=== PATIENT | male | born 1940 | race Asian ===

== ENCOUNTER 2017-04-16 18:03 | Inpatient (IN) | payer MEDICARE, OTHER ==
[~2017-04-16] VITALS: Ht 182.9 cm; Wt 53.5 kg
[2017-04-16 19:50] LABS: Basophils # (auto) 0 uL; Basophils % (auto) 0.3 % (0.0-2.0); CONDITION Y; Eosinophils # (auto) 0.4 uL; Eosinophils % (auto) 7.2 % (0.0-7.0); Hematocrit 34.5 % (41.0-53.0); Hemoglobin 11.5 g/dL (13.5-17.5); Lymphocytes # (auto) 0.7 uL; Lymphocytes % (auto) 12.5 % (10.0-50.0); Mean Corpuscular Hemoglobin 30.8 pg (28.0-32.0); Mean Corpuscular Hgb Conc. 33.5 g/dL (32.0-36.0); Mean Corpuscular Volume 92.1 fL (80.0-100.0); Mean Platelet Volume 7.1 fL (7.4-10.4); Monocytes # (auto) 0.5 uL; Monocytes % (auto) 9.2 % (0.0-12.0); Neutrophils # (auto) 3.8 uL; Neutrophils % (auto) 70.8 % (37.0-80.0); Platelet Count (auto) 304 10^3/uL (140-450); Red Cell Distribution Width 14.4 % (11.6-16.0); White Blood Cell 5.3 10^3/uL (4.4-10.8)
[2017-04-16 20:38] LABS: Albumin 3.6 g/dL (3.4-5.0); Anion Gap 10 (5-15); Aspartate Aminotransferase 20 U/L (15-37); BUN/Creatinine Ratio 10.5; Blood Urea Nitrogen 60 mg/dL (7-18); Calcium 8.3 mg/dL (8.5-10.1); Carbon Dioxide 17 mmol/L (21-32); Chloride 112 mmol/L (98-107); GFR African American 12 mL/min; GFR Non-African American 10 mL/min; Glucose 99 mg/dL (74-106); Potassium 5.4 mmol/L (3.5-5.1); Sodium 139 mmol/L (136-145)
[2017-04-16 20:42] LABS: Alkaline Phosphatase 120 U/L (45-117); Bilirubin, Total 0.3 mg/dL (0.2-1.0); Total Protein 7.9 g/dL (6.4-8.2)
[2017-04-17] MEDS ORDERED: SODIUM POLYSTYRENE SULF 15GM/60ML SUSP PR ONE (05:15)
[2017-04-17] MEDS ORDERED: NITROGLYCERIN 0.4 MG SL TAB SL PRN (06:45)
[2017-04-17] MEDS ORDERED: ONDANSETRON HCL 4 MG/2 ML VIAL IV PRN (06:45)
[2017-04-17] MEDS ORDERED: TEMAZEPAM 15 MG CAP PO PRN (06:45)
[2017-04-17] MEDS ORDERED: MORPHINE SULF INJ 2 MG/ML SYRINGE 1ML IV PRN (06:45)
[2017-04-17] MEDS ORDERED: ACETAMINOPHEN 325 MG TAB PO PRN (06:45)
[2017-04-17] MEDS ORDERED: HYDROcodone-ACET 5/325MG TAB PO PRN (06:45)
[2017-04-17] MEDS: FERROUS SULFATE 325 MG TAB PO SCH ×2 (08:00→18:46)
[2017-04-17 09:10] VITALS: BP 120/79
[2017-04-17] MEDS ORDERED: LOSARTAN POTASSIUM 50 MG TAB PO SCH (10:00)
[2017-04-17] MEDS ORDERED: SODIUM CHLORIDE 0.9% 1,000 ML IV ONE (10:30)
[2017-04-17] MEDS: amLODIPine BESYLATE 5 MG TAB PO SCH (12:01)
[2017-04-17] MEDS: CLOPIDOGREL BISULFATE 75 MG TAB PO SCH (12:01)
[2017-04-17] MEDS: PANTOPRAZOLE 40 MG TAB PO SCH (12:01)
[2017-04-17] MEDS: ENOXAPARIN SOD 30 MG/0.3 ML SYRINGE SC SCH (12:02)
[2017-04-17 12:58] VITALS: BP 126/73
[2017-04-17] MEDS ORDERED: AML5T PO (16:30)
[2017-04-17] MEDS ORDERED: FER325T PO (16:30)
[2017-04-17] MEDS ORDERED: ROSU1TAB5 PO (16:30)
[2017-04-17] MEDS ORDERED: AMIO200T33 PO (16:30)
[2017-04-17] MEDS ORDERED: LOSA50TA6 PO (16:30)
[2017-04-17] MEDS ORDERED: CLOP75TA41 PO (16:30)
[2017-04-17 16:55] VITALS: BP 109/72
[2017-04-17 19:30] LABS: Urine Bilirubin Negative (Negative); Urine Blood TRACE /uL (Negative); Urine Color Yellow (Yellow); Urine Glucose Normal (Normal); Urine Ketone Negative (Negative); Urine Nitrite Negative (Negative); Urine RBC 1 /hpf (0 - 3); Urine Urobilinogen Normal (Negative)
[2017-04-17] MEDS: ROSUVASTATIN 10 MG PO SCH (21:23)
[2017-04-17 22:00] VITALS: BP 114/64
[2017-04-17] MEDS ORDERED: ROSUVASTATIN 10 MG PO SCH (22:00)
[2017-04-18 05:00] VITALS: BP 124/75
[2017-04-18 06:34] LABS: Basophils # (auto) 0 uL; Basophils % (auto) 0.5 % (0.0-2.0); CONDITION Y; Eosinophils # (auto) 0.4 uL; Eosinophils % (auto) 6.7 % (0.0-7.0); Hematocrit 34.5 % (41.0-53.0); Hemoglobin 11.4 g/dL (13.5-17.5); Lymphocytes # (auto) 0.6 uL; Lymphocytes % (auto) 9.8 % (10.0-50.0); Mean Corpuscular Hgb Conc. 33.2 g/dL (32.0-36.0); Mean Corpuscular Volume 93.4 fL (80.0-100.0); Mean Platelet Volume 7.1 fL (7.4-10.4); Monocytes # (auto) 0.5 uL; Monocytes % (auto) 8.2 % (0.0-12.0); Neutrophils # (auto) 4.5 uL; Neutrophils % (auto) 74.8 % (37.0-80.0); Platelet Count (auto) 281 10^3/uL (140-450); Red Cell Distribution Width 14.7 % (11.6-16.0)
[2017-04-18 07:14] LABS: Albumin 3.6 g/dL (3.4-5.0); Alkaline Phosphatase 123 U/L (45-117); Anion Gap 9 (5-15); Aspartate Aminotransferase 22 U/L (15-37); BUN/Creatinine Ratio 11.3; Bilirubin, Direct < 0.1 mg/dL (0-0.2); Bilirubin, Total 0.3 mg/dL (0.2-1.0); Blood Urea Nitrogen 61 mg/dL (7-18); Calcium 8.4 mg/dL (8.5-10.1); Carbon Dioxide 18 mmol/L (21-32); Chloride 117 mmol/L (98-107); GFR African American 13 mL/min; GFR Non-African American 11 mL/min; Glucose 82 mg/dL (74-106); Phosphorus 3.3 mg/dL (2.5-4.90); Potassium 4.9 mmol/L (3.5-5.1); Sodium 144 mmol/L (136-145); Total Protein 7.9 g/dL (6.4-8.2); Uric Acid 5.6 mg/dL (3.5-7.2)
[2017-04-18 08:00] VITALS: BP 128/77
[2017-04-18 09:00] VITALS: BP 128/75
[2017-04-18] MEDS: FERROUS SULFATE 325 MG TAB PO SCH ×2 (09:23→17:44)
[2017-04-18] MEDS: PANTOPRAZOLE 40 MG TAB PO SCH (09:23)
[2017-04-18] MEDS: amLODIPine BESYLATE 5 MG TAB PO SCH (09:24)
[2017-04-18] MEDS: CLOPIDOGREL BISULFATE 75 MG TAB PO SCH (09:24)
[2017-04-18] MEDS: ENOXAPARIN SOD 30 MG/0.3 ML SYRINGE SC SCH (09:24)
[2017-04-18 13:00] VITALS: BP 121/62
[2017-04-18 17:00] VITALS: BP 119/62
[2017-04-18] MEDS: ROSUVASTATIN 10 MG PO SCH (21:50)
[2017-04-18 22:00] VITALS: BP_SYST 124; BP_SYST 139; BP_DIAS 70; BP_DIAS 88
[2017-04-19 05:00] VITALS: BP 137/86
[2017-04-19 05:47] LABS: Basophils # (auto) 0 uL; Basophils % (auto) 0.5 % (0.0-2.0); CONDITION Y; Eosinophils # (auto) 0.4 uL; Eosinophils % (auto) 6.9 % (0.0-7.0); Hematocrit 32.5 % (41.0-53.0); Hemoglobin 10.9 g/dL (13.5-17.5); Lymphocytes # (auto) 0.7 uL; Lymphocytes % (auto) 11.2 % (10.0-50.0); Mean Corpuscular Hemoglobin 31.2 pg (28.0-32.0); Mean Corpuscular Hgb Conc. 33.5 g/dL (32.0-36.0); Mean Corpuscular Volume 93.1 fL (80.0-100.0); Mean Platelet Volume 7.1 fL (7.4-10.4); Monocytes # (auto) 0.5 uL; Monocytes % (auto) 7.7 % (0.0-12.0); Neutrophils # (auto) 4.6 uL; Neutrophils % (auto) 73.7 % (37.0-80.0); Platelet Count (auto) 274 10^3/uL (140-450); Red Cell Distribution Width 14.3 % (11.6-16.0); White Blood Cell 6.3 10^3/uL (4.4-10.8)
[2017-04-19 06:01] LABS: Calcium 8.2 mg/dL (8.5-10.1); Potassium 4.8 mmol/L (3.5-5.1)
[2017-04-19 06:21] LABS: BUN/Creatinine Ratio 11.2
[2017-04-19] MEDS ORDERED: SOD CHL 0.45% 1,000 ML IV SCH (07:30)
[2017-04-19] MEDS: ENOXAPARIN SOD 30 MG/0.3 ML SYRINGE SC SCH (09:33)
[2017-04-19] MEDS: amLODIPine BESYLATE 5 MG TAB PO SCH (09:33)
[2017-04-19] MEDS: CLOPIDOGREL BISULFATE 75 MG TAB PO SCH (09:33)
[2017-04-19] MEDS: PANTOPRAZOLE 40 MG TAB PO SCH (09:33)
[2017-04-19] MEDS: FERROUS SULFATE 325 MG TAB PO SCH (09:34)
[2017-04-19 10:26] VITALS: BP 127/74
[2017-04-19 12:00] VITALS: BP 129/76
[2017-04-19 14:19] VITALS: BP 127/74
== END 2017-04-19 15:56 | disposition home or self-care (01) | DRG 682 ==
LOC: ER 18:11 → TELE 18:12 → TELE-E-ADS 04-17 08:18 → TELE-WESTW 04-17 11:16
PROVIDERS: ADMIT Nurse Practitioner; ATTEND Family Medicine
DX: N17.0 Acute kidney failure with tubular necrosis (principal); E43 Unspecified severe protein-calorie malnutrition; I12.0 Hypertensive chronic kidney disease with stage 5 chronic kidney disease or end stage renal disease; Z68.1 Body mass index [BMI] 19.9 or less, adult; N18.6 End stage renal disease; E87.5 Hyperkalemia; D63.8 Anemia in other chronic diseases classified elsewhere; I25.10 Atherosclerotic heart disease of native coronary artery without angina pectoris; D63.1 Anemia in chronic kidney disease; E11.22 Type 2 diabetes mellitus with diabetic chronic kidney disease; E78.5 Hyperlipidemia, unspecified; I95.9 Hypotension, unspecified; I44.1 Atrioventricular block, second degree; Z95.1 Presence of aortocoronary bypass graft; Z95.5 Presence of coronary angioplasty implant and graft; Z99.2 Dependence on renal dialysis
CPT/HCPCS: 36415; 71010; 76775; 80048; 80053; 80076; 81001; 82306; 82570; 82962; 83036; 83540; 83550; 83735; 84100; 84132; 84156; 84300; 84443; 84484; 84550; 85025; 87340; 93005

== ENCOUNTER → 2017-05-08 | Outpatient (CLI) | payer MEDICARE ==
[~2017-05-08] MED LIST: AMIO200T33 PO; AML5T PO; CLOP75TA41 PO; FER325T PO; LOSA50TA6 PO; ROSU1TAB5 PO
[2017-05-08 10:58] LABS: Basophils # (auto) 0 uL; Basophils % (auto) 0.3 % (0.0-2.0); CONDITION Y; Eosinophils # (auto) 0.5 uL; Eosinophils % (auto) 8.8 % (0.0-7.0); Hematocrit 35.3 % (41.0-53.0); Hemoglobin 11.8 g/dL (13.5-17.5); Lymphocytes # (auto) 0.7 uL; Lymphocytes % (auto) 12.7 % (10.0-50.0); Mean Corpuscular Hemoglobin 31.2 pg (28.0-32.0); Mean Corpuscular Hgb Conc. 33.4 g/dL (32.0-36.0); Mean Corpuscular Volume 93.3 fL (80.0-100.0); Mean Platelet Volume 7.5 fL (7.4-10.4); Monocytes # (auto) 0.4 uL; Monocytes % (auto) 7.4 % (0.0-12.0); Neutrophils # (auto) 4.1 uL; Neutrophils % (auto) 70.8 % (37.0-80.0); Platelet Count (auto) 254 10^3/uL (140-450); Red Cell Distribution Width 14.8 % (11.6-16.0); White Blood Cell 5.8 10^3/uL (4.4-10.8)
[2017-05-08 11:19] LABS: Urine Bilirubin Negative (Negative); Urine Blood Negative /uL (Negative); Urine Color Yellow (Yellow); Urine Glucose Normal (Normal); Urine Ketone Negative (Negative); Urine Nitrite Negative (Negative); Urine RBC 1 /hpf (0 - 3); Urine Squamous Epithelial Cell FEW /hpf (<5); Urine Urobilinogen Normal (Negative); Urine pH 5.5 (5.0-8.0)
[2017-05-08 11:24] LABS: Urine Protein/Creatinine Ratio 1.96
[2017-05-08 11:25] LABS: Albumin 3.7 g/dL (3.4-5.0); BUN/Creatinine Ratio 10.6; Calcium 8.5 mg/dL (8.5-10.1); Phosphorus 3.9 mg/dL (2.5-4.90); Potassium 5.1 mmol/L (3.5-5.1); Uric Acid 6.1 mg/dL (3.5-7.2)
== END | disposition home or self-care (01) ==
LOC: LAB 10:26
PROVIDERS: ATTEND Internal Medicine Nephrology
DX: N18.3 Chronic kidney disease, stage 3 (moderate) (principal); D63.1 Anemia in chronic kidney disease; R80.9 Proteinuria, unspecified; E78.5 Hyperlipidemia, unspecified; E21.3 Hyperparathyroidism, unspecified; M10.9 Gout, unspecified; N39.0 Urinary tract infection, site not specified; E55.9 Vitamin D deficiency, unspecified
CPT/HCPCS: 36415; 80061; 80069; 81001; 82306; 82570; 83540; 83550; 84156; 84550; 85025

== ENCOUNTER → 2017-06-04 | Outpatient (CLI) | payer MEDICARE, MEDICAID ==
[2017-06-04 10:18] LABS: Basophils # (auto) 0 uL; Basophils % (auto) 0.9 % (0.0-2.0); Eosinophils # (auto) 0.6 uL; Eosinophils % (auto) 11.3 % (0.0-7.0); Hematocrit 30.7 % (41.0-53.0); Hemoglobin 10.2 g/dL (13.5-17.5); Lymphocytes # (auto) 0.7 uL; Lymphocytes % (auto) 13.4 % (10.0-50.0); Mean Corpuscular Hemoglobin 31.9 pg (28.0-32.0); Mean Corpuscular Hgb Conc. 33.3 g/dL (32.0-36.0); Mean Corpuscular Volume 95.7 fL (80.0-100.0); Mean Platelet Volume 7.1 fL (6.9-10.8); Monocytes # (auto) 0.6 uL; Monocytes % (auto) 11.6 % (0.0-12.0); Neutrophils # (auto) 3.1 uL; Neutrophils % (auto) 62.8 % (37.0-80.0); Nucleated Red Blood Cells % 0.1 %; Platelet Count (auto) 188 10^3/uL (140-450); Red Cell Distribution Width 14.7 % (11.8-14.3); White Blood Cell 4.9 10^3/uL (4.4-10.8)
[2017-06-04 10:47] LABS: Albumin 3.7 g/dL (3.4-5.0); BUN/Creatinine Ratio 7.6; Calcium 8.3 mg/dL (8.5-10.1); Phosphorus 2.4 mg/dL (2.5-4.90); Uric Acid 10.1 mg/dL (3.5-7.2)
[2017-06-04 10:57] LABS: Urine Bilirubin Negative (Negative); Urine Blood Negative /uL (Negative); Urine Color Yellow (Yellow); Urine Glucose Normal (Normal); Urine Ketone Negative (Negative); Urine Nitrite Negative (Negative); Urine RBC 3 /hpf (0 - 3); Urine Urobilinogen Normal (Negative); Urine pH 7.5 (5.0-8.0)
== END | disposition home or self-care (01) ==
LOC: LAB 09:51
PROVIDERS: ATTEND Internal Medicine Nephrology
DX: E55.9 Vitamin D deficiency, unspecified (principal); E78.5 Hyperlipidemia, unspecified; E21.3 Hyperparathyroidism, unspecified; M10.9 Gout, unspecified; R80.9 Proteinuria, unspecified; I12.9 Hypertensive chronic kidney disease with stage 1 through stage 4 chronic kidney disease, or unspecified chronic kidney disease; N18.4 Chronic kidney disease, stage 4 (severe); D63.1 Anemia in chronic kidney disease
CPT/HCPCS: 36415; 80069; 81001; 82306; 84550; 85025

== ENCOUNTER → 2017-08-14 | Outpatient (CLI) | payer MEDICARE, MEDICAID ==
[2017-08-14 11:21] LABS: Albumin 3.8 g/dL (3.4-5.0); BUN/Creatinine Ratio 8.8; Calcium 8.7 mg/dL (8.5-10.1); Phosphorus 2.5 mg/dL (2.5-4.90); Potassium 4.1 mmol/L (3.5-5.1)
== END | disposition home or self-care (01) ==
LOC: LAB 09:57
PROVIDERS: ATTEND Internal Medicine Nephrology
DX: N18.3 Chronic kidney disease, stage 3 (moderate) (principal); E78.00 Pure hypercholesterolemia, unspecified
CPT/HCPCS: 36415; 80061; 80069

== ENCOUNTER → 2017-09-23 | Outpatient (CLI) | payer MEDICARE, MEDICAID ==
[2017-09-23 12:02] LABS: Basophils # (auto) 0 uL; Basophils % (auto) 0.9 % (0.0-2.0); Eosinophils # (auto) 0.6 uL; Eosinophils % (auto) 14.3 % (0.0-7.0); Hematocrit 29.8 % (41.0-53.0); Lymphocytes # (auto) 0.5 uL; Lymphocytes % (auto) 12.1 % (10.0-50.0); Mean Corpuscular Hemoglobin 31.6 pg (28.0-32.0); Mean Corpuscular Hgb Conc. 33.6 g/dL (32.0-36.0); Mean Corpuscular Volume 94.1 fL (80.0-100.0); Monocytes # (auto) 0.3 uL; Monocytes % (auto) 7.4 % (0.0-12.0); Neutrophils # (auto) 2.9 uL; Neutrophils % (auto) 65.3 % (37.0-80.0); Platelet Count (auto) 254 10^3/uL (140-450); Red Blood Cells 3.17 10^6/uL (4.5-5.90); Red Cell Distribution Width 13.2 % (11.8-14.3); White Blood Cell 4.4 10^3/uL (4.4-10.8)
[2017-09-23 12:16] LABS: Urine Bacteria NONE SEEN /hpf (None Seen); Urine Blood TRACE /uL (Negative); Urine Mucus FEW (None Seen); Urine Specific Gravity 1.006 (1.001-1.035); Urine WBC <1 /hpf (0 - 3)
[2017-09-23 13:03] LABS: Albumin 3.4 g/dL (3.4-5.0); BUN/Creatinine Ratio 7.5; Phosphorus 2.4 mg/dL (2.5-4.90); Potassium 4.1 mmol/L (3.5-5.1); Uric Acid 3.5 mg/dL (3.5-7.2)
== END | disposition home or self-care (01) ==
LOC: LAB 11:32
PROVIDERS: ATTEND Internal Medicine
DX: I12.0 Hypertensive chronic kidney disease with stage 5 chronic kidney disease or end stage renal disease (principal); N18.5 Chronic kidney disease, stage 5; D63.1 Anemia in chronic kidney disease; E21.3 Hyperparathyroidism, unspecified; E55.9 Vitamin D deficiency, unspecified; E78.5 Hyperlipidemia, unspecified; M10.9 Gout, unspecified; R80.9 Proteinuria, unspecified
CPT/HCPCS: 36415; 80069; 81001; 82306; 82570; 84156; 84550; 85025

== ENCOUNTER 2018-03-08 23:25 | Emergency (ER) | payer MEDICARE, MEDICAID ==
[~2018-03-08] VITALS: Ht 175.3 cm; Wt 62.6 kg
[2018-03-09 02:44] LABS: Basophils # (auto) 0 uL; Basophils % (auto) 0.6 % (0.0-2.0); Eosinophils # (auto) 0.1 uL; Eosinophils % (auto) 2.6 % (0.0-7.0); Hematocrit 36.2 % (41.0-53.0); Hemoglobin 11.6 g/dL (13.5-17.5); Lymphocytes # (auto) 0.4 uL; Lymphocytes % (auto) 7.7 % (10.0-50.0); Mean Corpuscular Hemoglobin 30.9 pg (28.0-32.0); Mean Corpuscular Hgb Conc. 32.1 g/dL (32.0-36.0); Mean Corpuscular Volume 96.2 fL (80.0-100.0); Monocytes # (auto) 0.4 uL; Monocytes % (auto) 8.2 % (0.0-12.0); Neutrophils # (auto) 3.9 uL; Neutrophils % (auto) 80.9 % (37.0-80.0); Nucleated Red Blood Cells % 0.1 %; Platelet Count (auto) 169 10^3/uL (140-450); Red Blood Cells 3.76 10^6/uL (4.5-5.90); Red Cell Distribution Width 16.4 % (11.8-14.3); White Blood Cell 4.8 10^3/uL (4.4-10.8)
[2018-03-09 03:10] LABS: Albumin 3.5 g/dL (3.4-5.0); BUN/Creatinine Ratio 7.7; Bilirubin, Total 0.5 mg/dL (0.2-1.0); Calcium 8.4 mg/dL (8.5-10.1); Potassium 5.3 mmol/L (3.5-5.1); Total Protein 7.7 g/dL (6.4-8.2)
[2018-03-09] MEDS ORDERED: LEVOFLOXACIN 500MG 100 ML IV ONE (06:15)
[2018-03-09 07:48] VITALS: BP 161/89
== END 2018-03-09 08:02 | disposition short-term general hospital (02) ==
LOC: ER 23:25
DX: J18.9 Pneumonia, unspecified organism (principal); I71.4 Abdominal aortic aneurysm, without rupture; J90 Pleural effusion, not elsewhere classified; I12.9 Hypertensive chronic kidney disease with stage 1 through stage 4 chronic kidney disease, or unspecified chronic kidney disease; N18.3 Chronic kidney disease, stage 3 (moderate); E78.5 Hyperlipidemia, unspecified; Z95.1 Presence of aortocoronary bypass graft; Z79.899 Other long term (current) drug therapy; Z86.73 Personal history of transient ischemic attack (TIA), and cerebral infarction without residual deficits
CPT/HCPCS: 36415; 71045; 74176; 80053; 83690; 84484; 85025; 93005; 96365; 99285; J1956

== ENCOUNTER → 2018-05-02 | Outpatient (CLI) | payer MEDICARE, MEDICAID ==
[~2018-05-02] VITALS: Ht 177.8 cm; Wt 50.8 kg
[~2018-05-02] MED LIST changes: +ADENOSINE 43 MG in GIVE UN-DILUTED 0 ML IV STA; -ROSU1TAB5 PO; +ROSU1TAB9 PO
[2018-05-02 10:22] VITALS: BP 147/75
== END | disposition home or self-care (01) ==
LOC: XY 08:16
DX: R94.31 Abnormal electrocardiogram [ECG] [EKG] (principal); E78.5 Hyperlipidemia, unspecified; I12.9 Hypertensive chronic kidney disease with stage 1 through stage 4 chronic kidney disease, or unspecified chronic kidney disease; N18.3 Chronic kidney disease, stage 3 (moderate)
CPT/HCPCS: 78452; 93017; A9500; J0153

== ENCOUNTER → 2018-05-07 | Outpatient (CLI) | payer MEDICARE, MEDICAID ==
[~2018-05-07] MED LIST changes: -ADENOSINE 43 MG in GIVE UN-DILUTED 0 ML IV STA
== END | disposition home or self-care (01) ==
LOC: LAB 10:27
PROVIDERS: ATTEND Urology
DX: R97.20 Elevated prostate specific antigen [PSA] (principal)
CPT/HCPCS: 36415; 82565; 84153; 84154; 84520

== ENCOUNTER → 2018-07-14 | Outpatient (CLI) | payer MEDICARE, MEDICAID ==
[~2018-07-14] MED LIST changes: +LOSA-46 PO; -LOSA50TA6 PO
[2018-07-14 13:17] LABS: Potassium 5.3 mmol/L (3.5-5.1)
[2018-07-14 13:19] LABS: BUN/Creatinine Ratio 7.7
== END | disposition home or self-care (01) ==
LOC: LAB 11:24
PROVIDERS: ATTEND Internal Medicine Nephrology
DX: I12.9 Hypertensive chronic kidney disease with stage 1 through stage 4 chronic kidney disease, or unspecified chronic kidney disease (principal); N18.3 Chronic kidney disease, stage 3 (moderate); E78.5 Hyperlipidemia, unspecified
CPT/HCPCS: 36415; 80048

== ENCOUNTER → 2018-07-17 | Outpatient (CLI) | payer MEDICARE, MEDICAID ==
[2018-07-17 13:03] LABS: BUN/Creatinine Ratio 8.3; Calcium 8.8 mg/dL (8.5-10.1); Potassium 5.3 mmol/L (3.5-5.1)
== END | disposition home or self-care (01) ==
LOC: LAB 12:14
PROVIDERS: ATTEND Internal Medicine Nephrology
DX: I12.9 Hypertensive chronic kidney disease with stage 1 through stage 4 chronic kidney disease, or unspecified chronic kidney disease (principal); N18.3 Chronic kidney disease, stage 3 (moderate)
CPT/HCPCS: 36415; 80048

== ENCOUNTER 2018-11-29 10:10 | Inpatient (IN) | payer MEDICARE, MEDICAID ==
[~2018-11-29] VITALS: Ht 177.8 cm; Wt 46.9 kg
[2018-11-29] MEDS ORDERED: PIPERACILLIN-TAZOB 3.375GM 100 ML IV ONE (12:30)
[2018-11-29 13:38] LABS: Basophils # (auto) 0 uL; Basophils % (auto) 0.7 % (0.0-2.0); Eosinophils # (auto) 0.7 uL; Eosinophils % (auto) 12.5 % (0.0-7.0); Hematocrit 34.1 % (41.0-53.0); Hemoglobin 11.1 g/dL (13.5-17.5); Lymphocytes # (auto) 0.6 uL; Lymphocytes % (auto) 10.9 % (10.0-50.0); Mean Corpuscular Hemoglobin 32.7 pg (28.0-32.0); Mean Corpuscular Hgb Conc. 32.6 g/dL (32.0-36.0); Mean Corpuscular Volume 100.3 fL (80.0-100.0); Monocytes # (auto) 0.5 uL; Monocytes % (auto) 9.6 % (0.0-12.0); Neutrophils # (auto) 3.7 uL; Neutrophils % (auto) 66.3 % (37.0-80.0); Platelet Count (auto) 95 10^3/uL (140-450); White Blood Cell 5.6 10^3/uL (4.4-10.8)
[2018-11-29 13:49] LABS: Potassium 4.8 mmol/L (3.5-5.1)
[2018-11-29 13:59] LABS: Albumin 3.4 g/dL (3.4-5.0); BUN/Creatinine Ratio 5.2; Bilirubin, Total 0.5 mg/dL (0.2-1.0); Magnesium 2.4 mg/dL (1.6-2.6); Total Protein 7.6 g/dL (6.4-8.2)
[2018-11-29 15:41] LABS: Urine WBC None Seen /hpf (0 - 3)
[2018-11-29 15:57] LABS: Urine Bacteria NONE SEEN /hpf (None Seen); Urine Blood Negative /uL (Negative); Urine Specific Gravity 1.008 (1.001-1.035)
[2018-11-29] MEDS ORDERED: NITROGLYCERIN 0.4 MG SL TAB SL PRN (17:30)
[2018-11-29] MEDS ORDERED: MORPHINE SULF INJ 2 MG/ML SYRINGE 1ML IV PRN ×2 (17:30→17:45)
[2018-11-29] MEDS ORDERED: ONDANSETRON HCL 4 MG/2 ML VIAL IV PRN (17:45)
[2018-11-29] MEDS ORDERED: ACETAMINOPHEN 500 MG TAB PO PRN (17:45)
[2018-11-29] MEDS ORDERED: HYDROcodone-ACET 5/325MG TAB PO PRN (17:45)
[2018-11-29] MEDS: CALCIUM ACETATE 667 MG CAP PO SCH (19:00)
[2018-11-29] MEDS: TAMSULOSIN HYDROCHLORIDE 0.4 MG CAP PO SCH (19:00)
[2018-11-29] MEDS ORDERED: ASPI81TA27 PO (19:58)
[2018-11-29] MEDS ORDERED: CALC667C PO (19:58)
[2018-11-29] MEDS ORDERED: FEBU40TA PO (19:58)
[2018-11-29] MEDS ORDERED: TAMS1CAP25 PO (19:59)
--- NOTE | 2018-11-29 20:20 | NUR ---
Telemetry admit from [facility]AL[facility] SCHULZGURVINDER admitted to Telemetry unit after SBAR received. Patient oriented to oZila Juarez, primary RN, unit, room, bed, and unit policies regarding patient care and visiting hours. Patient now on continuous telemetry monitoring, tele box # 43 and telemetry reading on arrival to unit is SR 86 WITH 1ST DEGREE AVB. Patient placed on bedside oxygen, weighed by bedscale and encouraged to call if they need something. All questions and concerns addressed, patient verbalized understanding. Note: ALERT AND ORIENTED X 4. DENIES PAIN AND DISCOMFORT AT THIS TIME.CALL LIGHT WITHIN REACH, BED IN LOW POSITION AND ALARM IS ON.
[2018-11-29 20:30] VITALS: BP 162/87
[2018-11-29] MEDS: APIXABAN 5 MG TAB PO SCH (21:37)
[2018-11-29] MEDS: ATORVASTATIN 20 MG TAB PO SCH (21:38)
[2018-11-30 05:00] VITALS: BP 144/82
[2018-11-30 06:46] LABS: BUN/Creatinine Ratio 5.6; Calcium 8.7 mg/dL (8.5-10.1); Potassium 4.6 mmol/L (3.5-5.1)
[2018-11-30 06:49] LABS: Hematocrit 28.6 % (41.0-53.0); Hemoglobin 9.4 g/dL (13.5-17.5); Mean Corpuscular Hemoglobin 32.9 pg (28.0-32.0); Mean Corpuscular Volume 99.6 fL (80.0-100.0); Platelet Count (auto) 96 10^3/uL (140-450); Red Blood Cells 2.87 10^6/uL (4.5-5.90); Red Cell Distribution Width 15.7 % (11.8-14.3); White Blood Cell 5.8 10^3/uL (4.4-10.8)
[2018-11-30 06:58] LABS: Band Neutrophils % (manual) 0; Basophils % (manual) 0 (0.0-2.0); Blast Cells 0; Metamyelocytes % 0; Myelocytes % 0; Promyelocytes % 0; Reactive Lymphocytes 0
--- NOTE | 2018-11-30 07:15 | NUR ---
Opening Shift Note Assumed care of patient, awake and alert. No S/S of distress/SOB on 2 LPM via nasal cannula or pain. Instructed on POC and to call for assist PRN, will continue to monitor for changes Q1hr and PRN. Bed in low and locked position, rails up x2, no-slip socks on.
[2018-11-30 08:00] VITALS: BP 145/78
[2018-11-30 08:42] LABS: Eosinophils % (manual) 14 (0-7); Lymphocytes % (manual) 11 (10.0-50.0); Monocytes % (manual) 6 (0-12)
[2018-11-30] MEDS: CALCIUM ACETATE 667 MG CAP PO SCH ×3 (08:42→17:59)
--- NOTE | 2018-11-30 09:12 | NUR ---
MRSA NARES SWAB COLLECTED SENT TO LAB
[2018-11-30] MEDS: FERROUS SULFATE 325 MG TAB PO SCH (10:41)
[2018-11-30] MEDS: amLODIPine BESYLATE 5 MG TAB PO SCH (10:42)
[2018-11-30] MEDS: PANTOPRAZOLE 40 MG TAB PO SCH (10:42)
[2018-11-30] MEDS: APIXABAN 5 MG TAB PO SCH (10:42)
--- NOTE | 2018-11-30 12:15 | NUR ---
DR REDDING AT BEDSIDE NEW ORDERS ADDED, CT ANGIO CHEST-DR REDDING SPOKE TO DR VILLANUEVA REGARDING CONTRAST, STOP ELIQUIS, THORACENESIS TOMORROW.
[2018-11-30 12:25] VITALS: BP 132/79
[2018-11-30 13:30] LABS: INR 1.09 (0.9-1.15); Partial Thromboplastin Time 38.8 sec (23.78-33.04); Prothrombin Time 11.6 sec (9.27-12.13)
--- NOTE | 2018-11-30 14:53 | NUR ---
PAGE TO DR VILLANUEVA FOR DIALYSIS ORDERS, PER DR REDDING SHE SPOKE TO DR VILLANUEVA AND OK'ED THE CT ANGIO, PATIENT WILL BE DIALYZED IN 24 HOURS. AWAITING CALL BACK FOR ORDERS.
[2018-11-30] MEDS ORDERED: VANCOMYCIN PER PHARMACY 0 MG IV SCH (15:15)
--- NOTE | 2018-11-30 15:41 | NUR ---
SPUTUM SAMPLE COLLECTED
[2018-11-30] MEDS ORDERED: VANCOMYCIN 500 MG in D5W 5% 100 ML IV ONE (16:00)
--- NOTE | 2018-11-30 16:16 | NUR ---
DR VILLANUEVA AT BEDSIDE
[2018-11-30] MEDS ORDERED: IODIXANOL 320MG/ML 100ML BTL IV ONE (16:50)
[2018-11-30 16:54] VITALS: BP 145/83
--- NOTE | 2018-11-30 17:21 | NUR ---
PATIENT OFF UNIT FOR PROCEDURE CT ANGIO
--- NOTE | 2018-11-30 17:50 | NUR ---
PATIENT BACK ON UNIT
[2018-11-30] MEDS: TAMSULOSIN HYDROCHLORIDE 0.4 MG CAP PO SCH (17:59)
--- NOTE | 2018-11-30 19:10 | NUR ---
SHIFT CHANGE ENDORSED CARE TO NOC NURSE
--- NOTE | 2018-11-30 19:45 | NUR ---
Opening Shift Note Assumed care of patient, awake, alert, oriented x4. No S/S of distress/SOB on 2.5 L via nasal cannula. Patient denies pain and no nose bleeds at this time. Instructed on POC and to call for assist PRN, will continue to monitor. Bed in lowest position, rails up x2, safety socks on, bed alarm armed. Call light and urinal within reach.
--- NOTE | 2018-11-30 20:10 | NUR ---
IV occluded. IV DC'd from right upper arm 22g with clean sterile technique, catheter fully intact. Pressure dressing applied to site. Patient tolerated well.
[2018-11-30] MEDS: ATORVASTATIN 20 MG TAB PO SCH (21:37)
--- NOTE | 2018-11-30 21:37 | NUR ---
SCD PLACEMENT Put SCD on patient and educated on what the equipment is used for.
[2018-11-30 22:00] VITALS: BP 146/85
[2018-12-01] VITALS (18 sets, daily range): BP systolic 58–154; BP diastolic 31–84
--- NOTE | 2018-12-01 00:15 | NUR ---
Change in Rhythm Kristal called at 0010 to notify this nurse that there was a change in rhythm from sinus rhythm to A Fib. Ekg was done to confirm change. Change was noted. EKG was placed in patients chart. Vitals were taken HR 77, 97% oxygen, bp 144/67, 16 respiration. Patient is Asymptomatic with no s/s of distress or sob. Will page hospitalist.
--- NOTE | 2018-12-01 00:30 | NUR ---
Patient refused turning Patient asked to not be turned if sleeping. Patient was educated on the reason why he is needed to be turn. Patient verbalized understanding, but still refused to be turned due to not being able to sleep.
--- NOTE | 2018-12-01 02:36 | NUR ---
Hospitalist Called: Hospitalist was paged at 0200. Hospitalist Butch called back and was informed about rhythm changed. No new orders at this time will continue to monitor patient.
[2018-12-01 07:15] LABS: Basophils # (auto) 0 uL; Basophils % (auto) 0.6 % (0.0-2.0); Eosinophils # (auto) 0.7 uL; Eosinophils % (auto) 10.3 % (0.0-7.0); Hematocrit 30.6 % (41.0-53.0); Hemoglobin 10.1 g/dL (13.5-17.5); Lymphocytes # (auto) 0.7 uL; Mean Corpuscular Hemoglobin 32.9 pg (28.0-32.0); Mean Corpuscular Hgb Conc. 32.9 g/dL (32.0-36.0); Mean Corpuscular Volume 100.1 fL (80.0-100.0); Monocytes # (auto) 0.6 uL; Neutrophils # (auto) 4.7 uL; Neutrophils % (auto) 70.1 % (37.0-80.0); Platelet Count (auto) 132 10^3/uL (140-450); Red Blood Cells 3.06 10^6/uL (4.5-5.90); Red Cell Distribution Width 15.3 % (11.8-14.3); White Blood Cell 6.7 10^3/uL (4.4-10.8)
[2018-12-01 07:39] LABS: Albumin 3.4 g/dL (3.4-5.0); BUN/Creatinine Ratio 5.3; Calcium 8.9 mg/dL (8.5-10.1)
[2018-12-01 07:42] LABS: Bilirubin, Total 0.7 mg/dL (0.2-1.0); Total Protein 7.6 g/dL (6.4-8.2)
--- NOTE | 2018-12-01 07:53 | NUR ---
Closing Shift note: Report given and care endorsed with monika Grimaldo day nurse. Patient is awake, alert, and oriented x 4. On 2.5L via nc with no s/s of distress or sob. Patient denies pain. Bed in lowest position with call light in reach. Bed alarm is on.
--- NOTE | 2018-12-01 07:55 | NUR ---
Opening Shift Note Assumed care of patient, awake and alert and oriented x4. No S/S of distress/SOB or pain. Instructed on POC and to call for assist PRN, will continue to monitor for changes. Patient made aware of 1200 mL fluid restriction/ 24 hrs and stated understanding.
--- NOTE | 2018-12-01 08:03 | NUR ---
Hospitalist paged regarding Special Services Supervisor 10.0, awaiting C/B and patient scheduled or dialysis today. Will continue to monitor.
[2018-12-01] MEDS: CALCIUM ACETATE 667 MG CAP PO SCH ×3 (08:19→18:00)
[2018-12-01] MEDS ORDERED: cefTRIAXone 1GM/50ML D5W 50 ML IV SCH (09:00)
[2018-12-01] MEDS: PANTOPRAZOLE 40 MG TAB PO SCH (09:47)
[2018-12-01] MEDS: FERROUS SULFATE 325 MG TAB PO SCH (09:47)
--- NOTE | 2018-12-01 09:55 | NUR ---
Patient transferred for Thoracentesis no s/s of distress noted.
--- NOTE | 2018-12-01 10:09 | NUR ---
Dr Do at nursing station and made aware of Lap Hand Tool 10.0. Patient scheduled for dialysis today and currently off unit for thoracentesis.
--- NOTE | 2018-12-01 10:30 | NUR ---
THORACENTESIS DONE BY DR GILLETTE IN ULTRASOUND. PT TOLERATED WELL. VSS. 123/[id number]%. 900ML OF FLUID REMOVED AND SENT TO THE LAB.
[2018-12-01] MEDS: amLODIPine BESYLATE 5 MG TAB PO SCH (11:10)
--- NOTE | 2018-12-01 12:46 | NUR ---
Dr Do at bedside. Patient receiving dialysis, no s/s of distress noted or discomfort. Will continue to monitor.
--- NOTE | 2018-12-01 13:47 | NUR ---
Dr Hartman at bedside. Patient currently receiving dialysis no s/s of distress noted, will continue to monitor.
--- NOTE | 2018-12-01 14:10 | NUR ---
Dialysis Dialysis completed, 2.5 L removed. No s/s of distress noted. Will continue to monitor.
[2018-12-01] MEDS: ALBUMIN 25% 100 ML IV SCH ×2 (14:29→15:36)
[2018-12-01] MEDS ORDERED: VANCOMYCIN 1GM/250ML 250 ML IV ONE (16:00)
--- NOTE | 2018-12-01 16:12 | NUR ---
Patient started to cough up blood. Dr Do paged and made aware. VS stable. Patient denies any chest pain or SOB at this time will continue to monitor.
--- NOTE | 2018-12-01 16:18 | NUR ---
Received call back from Dr Do. Dr Do made aware of pt coughing up blood. New orders received for breathing TX, Albuterl and Atrovent, and Stat CXR. Will continue to monitor.
--- NOTE | 2018-12-01 16:50 | NUR ---
Dr Do paged in order to inform of CXR results and to notify MD that patient is still coughing up bright red blood. Will continue to monitor. Charge nurse and daughter at bedside.
--- NOTE | 2018-12-01 16:56 | NUR ---
Received call back from Dr Do and made aware of CXR results of possible hemorrhage and that patient continues to cough up quite a bit amount of bright red blood continuously. New orders received to transfer patient to ICU, Type and Screen, 2 units of FFP, 1 unit of PRBCs. Will continue to monitor, RN at bedside and charge nurse at bedside.
--- NOTE | 2018-12-01 17:05 | NUR ---
Dr Geiger at bedside. Dr Geiger spoke with Dr Do and made aware of patient's change of condition. Dr Geiger speaking with pt's daughter and made aware patient to be intubated. Desktop Administrator also made aware of intubation and at bedside.
[2018-12-01] MEDS ORDERED: ETOMIDATE (2MG/ML) 20ML VIAL IV ONE (17:06)
[2018-12-01] MEDS ORDERED: SUCCINYLCHOLINE CHLORIDE 20 MG/ML 10ML VIAL IV ONE (17:07)
[2018-12-01] MEDS ORDERED: ROCURONIUM 10MG/ML 10ML VIAL IV ONE (17:07)
[2018-12-01] MEDS ORDERED: PROPOFOL 100 ML IV SCH (17:19)
[2018-12-01] MEDS: fentaNYL Drip 2500mCg/250mlNS 250 ML IV SCH ×2 (17:19→19:30)
[2018-12-01] MEDS ORDERED: MIDAZOLAM HCL 5 MG/ML-1ML VIAL ONE (17:23)
--- NOTE | 2018-12-01 17:28 | NUR ---
Respiratory note: PLACED PT ON VENT AT THIS TIME. PT WAS INTUBATED AT 17:[address] LIU WITHOUT INCIDENT. PT INTUBATED WITH 7.5 ETT SECURED AT 20CM VIA HOLISTER, ETT MOVED TO 26CM AT THE LIP POST CXR RE-SECURED TO HOLISTER. BS ARE COURSE T/O, SPUTUM SAMPLE OBTAINED SXD FOR BENJAMIN BLOOD, SPUTUM SAMPLE SENT TO LAB. PT WILL BE TRANSFERRED TO ICU SOON MEANWHILE WILL BE HERE IN ROOM 220A. PTS DAUGHTER AT BEDSIDE. WILL CONTINUE TO MONITOR.
[2018-12-01] MEDS ORDERED: NOREPINEPHRINE 8 MG/250ML KIT 250 ML IV SCH (17:30)
--- NOTE | 2018-12-01 17:37 | NUR ---
INTUBATION cyber security manager Joslyn at bedside and Dr Waldron, RT, Ocean Export Coordinator, and Hospitalist Fely at bedside. cyber security manager Joslyn administered Etomidate and Succinate as ordered per Dr Waldron at 1714. 147/84, 149, 88%. Patient intubated at 1717. Patient was then also placed on a vent (149/72, 116, 100%). ICU Charge Nurse Saul at bedside and assumed care and medicated patient as ordered per Dr gutierrez. Will continue to monitor.
[2018-12-01 17:55] LABS: Hematocrit 27.6 % (41.0-53.0)
[2018-12-01] MEDS ORDERED: ALBUTEROL SULF 2.5 MG/0.5ML(0.5%) NEB SOLN NEB SCH (18:00)
[2018-12-01] MEDS: TAMSULOSIN HYDROCHLORIDE 0.4 MG CAP PO SCH (18:00)
[2018-12-01] MEDS ORDERED: IPRATROPIUM BROM 0.5 MG/2.5ML INH SOL NEB SCH (18:00)
--- NOTE | 2018-12-01 18:10 | NUR ---
Hospitalist Fely and Dr Hartman at bedside speaking with patient's daughter.
--- NOTE | 2018-12-01 18:20 | NUR ---
Respiratory note: PAGED TO BEDSIDE. DEBBIE BAUTISTA INCREASED PEEP TO 7CMH20
--- NOTE | 2018-12-01 18:24 | NUR ---
Report given to Betsy SANFORD made aware of pending 2U FFP to be given, 1U PRBCs, CT Angio, Type and Screen drawn yet results pending. Made aware 200 mL of bright red blood collected in suction canister.
--- NOTE | 2018-12-01 18:25 | NUR ---
Betsy SANFORD made aware unable to administer Vanco IV due to change of condition.
--- NOTE | 2018-12-01 18:30 | NUR ---
TRANSFER TO ICU; Received patient from Room 220-A, s/p intubation. Patient intubated with 7.5 ETT 26@ lip, vent settings AC 14, Vt 450, PEEP 7, FiO2 60%. Right lung with wheezes in the upper lobe and profoundly diminished in base. Patient with sanguineous secretions via ETT. Patient currently sedated with Diprivan at 15 mcg's increased to 20 due to hyperactive cough and gag reflex. 16F OGT inserted and secured after placement verification via aspiration and auscultation. Patient with levophed infusing at 15 mcg's. Patient with no acute distress, care will be endorsed to operation shift supervisor RN.
--- NOTE | 2018-12-01 19:00 | NUR ---
STAT chest CT ordered, Hospitalist aware of all current vital signs and labs pertinent to poc.
--- NOTE | 2018-12-01 19:30 | NUR ---
Stat chest CT okay with MD Hartman. Spoke with supervisor livestock yard. Awaiting CT
[2018-12-01] MEDS ORDERED: IOHEXOL 300 MG/ML 100ML BOTTLE IJ ONE (19:57)
--- NOTE | 2018-12-01 20:00 | NUR ---
Left message for Filipe OPERATIONS EXPERT to remove pressure dressing from dialysis catheter site. Unable to do so prior to patient being transferred to ICU.
--- NOTE | 2018-12-01 20:00 | NUR ---
Patient transferred with charge nurse, multiple RT, and primary nurse. Vital signs within normal limits. crt provider aware of all pertinent labs and poc.
--- NOTE | 2018-12-01 20:30 | NUR ---
Patient back from Chest CT, vital signs within normal limits per hospital policy and standards.Patient heart rate elevated. AERIAL TRAM OPERATOR is aware. He recommended to start transfusion.
--- NOTE | 2018-12-01 20:47 | NUR ---
RT Transport Note: Patient transported to CT with RN Yara. Patient ventilated manually via ambu bag on 100% to and from procedure. Patient on personnel monitor with alarms set and audible, ambu-bag/mask connected to 02 tank. Patient returned to room with no adverse reaction noted. Transport completed without incident.
--- NOTE | 2018-12-01 21:09 | NUR ---
first unit of FFP started. BRASS MOLDER is aware. Ordered stat Labs. Lab called for stat draw.
--- NOTE | 2018-12-01 21:15 | NUR ---
MD Fernandes at bedside for Line placement. He is aware of all pertinent labs and patient care. Family is in agreement of poc and choice for line placement.
[2018-12-01] MEDS ORDERED: DOPamine 1600MCG/ML D5W 250 ML IV ONE (21:22)
--- NOTE | 2018-12-01 21:24 | NUR ---
[facility] called. See [facility] record.
[2018-12-01] MEDS ORDERED: DOPamine 1600MCG/ML D5W 250 ML IV SCH (21:32)
[2018-12-01 21:36] LABS: Hematocrit 22.3 % (41.0-53.0); Hemoglobin 7.1 g/dL (13.5-17.5)
--- NOTE | 2018-12-01 22:00 | NUR ---
MD Hartman, and MD Do Notified of change of patient status.
--- NOTE | 2018-12-01 22:15 | NUR ---
[employer]ers and [employer] one notified.
[2018-12-02] MEDS ORDERED: EPINEPHrine HCL 1 MG/10 ML SYRG IV ONE (02:44)
[2018-12-02] MEDS ORDERED: SODIUM BICARBONATE 8.4% INJ 50ML SYRINGE IV ONE (02:44)
[2018-12-02] MEDS ORDERED: CALCIUM CHLOR(10%) 100MG/ML 10ML SYRINGE IV ONE (02:44)
== END 2018-12-02 02:45 | disposition expired | DRG 291 ==
LOC: ER 10:14 → TELE 17:23 → TELE-CENTR 20:21 → ICU WEST 12-01 18:42
PROVIDERS: ADMIT Nurse Practitioner Acute Care; ATTEND Internal Medicine
PROC: 30233K1 Transfusion of Nonautologous Frozen Plasma into Peripheral Vein, Percutaneous Approach (ICD-10-PCS; principal; 2018-12-01)
PROC: 5A1935Z Respiratory Ventilation, Less than 24 Consecutive Hours (ICD-10-PCS; 2018-12-01)
PROC: 0BH17EZ Insertion of Endotracheal Airway into Trachea, Via Natural or Artificial Opening (ICD-10-PCS; 2018-12-01)
PROC: 0W993ZZ Drainage of Right Pleural Cavity, Percutaneous Approach (ICD-10-PCS; 2018-12-01)
PROC: 5A12012 Performance of Cardiac Output, Single, Manual (ICD-10-PCS; 2018-12-02)
DX: I13.2 Hypertensive heart and chronic kidney disease with heart failure and with stage 5 chronic kidney disease, or end stage renal disease (principal); I50.43 Acute on chronic combined systolic (congestive) and diastolic (congestive) heart failure; N18.6 End stage renal disease; J96.01 Acute respiratory failure with hypoxia; J18.1 Lobar pneumonia, unspecified organism; D68.9 Coagulation defect, unspecified; N25.81 Secondary hyperparathyroidism of renal origin; R04.2 Hemoptysis; R04.89 Hemorrhage from other sites in respiratory passages; M10.9 Gout, unspecified; I25.10 Atherosclerotic heart disease of native coronary artery without angina pectoris; N40.0 Benign prostatic hyperplasia without lower urinary tract symptoms; D69.6 Thrombocytopenia, unspecified; D63.8 Anemia in other chronic diseases classified elsewhere; I07.1 Rheumatic tricuspid insufficiency; I71.4 Abdominal aortic aneurysm, without rupture; N05.9 Unspecified nephritic syndrome with unspecified morphologic changes; Z79.02 Long term (current) use of antithrombotics/antiplatelets; Z79.82 Long term (current) use of aspirin; Z82.49 Family history of ischemic heart disease and other diseases of the circulatory system; Z99.2 Dependence on renal dialysis; Z95.1 Presence of aortocoronary bypass graft; Z86.73 Personal history of transient ischemic attack (TIA), and cerebral infarction without residual deficits
CPT/HCPCS: 10022; 36415; 71045; 71046; 71260; 71275; 76604; 76942; 80048; 80053; 80202; 81001; 83605; 83735; 84484; 85007; 85014; 85018; 85025; 85027; 85379; 85610; 85730; 86850; 86900; 86901; 86920; 87040; 87070; 87081; 87205; 89051; 90935; 92950; 93005; 93306; 93970; 93971; 94002; 96365; G0378; J0330; J0696; J2250; J2543; J2704; J7060; P9047; Q9967